=== PATIENT | female | born 1985 | race Caucasian/White ===

== ENCOUNTER → 2024-06-20 08:48 | Outpatient (REF) | payer OTHER, SELFPAY | LOC: RAD 08:48 | PROVIDERS: ATTENDING PHYSICIAN Podiatrist Foot & Ankle Surgery; FAMILY PHYSICIAN Internal Medicine | DX: M62.9 Disorder of muscle, unspecified (principal); T14.8XXA Other injury of unspecified body region, initial encounter; M65.979 Unspecified synovitis and tenosynovitis, unspecified ankle and foot | CPT/HCPCS: 76882 ==